=== PATIENT | male | born 1985 | race Caucasian/White ===

== ENCOUNTER 2017-05-25 07:50 | Emergency (ER) | payer BC ==
[~2017-05-25 07:50] MED LIST: CIPR-255 PO; SULF800T23 PO
[2017-05-25 08:01] VITALS: TEMP 36.8; Ht 188 cm
--- NOTE | 2017-05-25 08:41 | DIAGNOSTIC IMAGING REPORT ---
L FOOT MIN 3 VIEWS ROUTINE CLINICAL HISTORY: Pain status post trauma COMPARISON: 02/16/2016 DISCUSSION: There is a subtle fracture of the cuboid. No additional fractures are visualized. IMPRESSION: Cuboid fracture. Electronically signed by: Aj Paz M.D. 05/25/2017 8:40 AM Dictated Date/Time: 05/25/2017 8:38 AM
--- NOTE | 2017-05-25 08:42 | DIAGNOSTIC IMAGING REPORT ---
LEFT ANKLE 3 VIEWS CLINICAL HISTORY: Left ankle injury. FINDINGS: 3 views of the left ankle are obtained. No prior studies are available for comparison at the time of dictation. The skeletal structures are well mineralized. A tiny avulsion fracture is suspected along the inferior aspect of the lateral malleolus. No additional fracture is seen. The ankle mortise is intact. There is a joint effusion. Mild soft tissue swelling is present around the ankle. IMPRESSION: 1. Soft tissue swelling and joint effusion. 2. Suspect a tiny avulsion fracture from the inferior aspect of the lateral malleolus. 3. No additional fracture is seen. Electronically signed by: Rinku Kaba M.D. 05/25/2017 8:41 AM Dictated Date/Time: 05/25/2017 8:39 AM
--- NOTE | 2017-05-25 09:12 | EMERGENCY ROOM VISIT NOTE ---
ED Visit Note First contact with patient: 08:03 CHIEF COMPLAINT: Left foot and ankle injury this morning Patient is an otherwise healthy 31-year-old white male who presents to the emergency department for evaluation of a left foot/ankle injury that he sustained earlier this morning. He was taking his dog out, and was stepping down off of his deck when he slipped and planted awkwardly with the left foot, and heard a crunching sound. He was able to bear weight, but as he continued to his morning he noted progressively worsening pain and swelling in the lateral aspect of his left foot and ankle. He took ibuprofen which has helped and he rates his discomfort a 3/10. He notes swelling of the lateral aspect of his foot. He also notes some slight ankle discomfort. Denies any prior history of injuries to this foot or ankle. Denies any knee pain. REVIEW OF SYSTEMS: Review of systems as per HPI. All other systems reviewed were negative. At least 6 systems reviewed. PMH: Electronic medical records are reviewed and summarized as above/below. See Problem List. SOCIAL HISTORY: Patient lives at home with his significant other. Smoker. He is employed. PHYSICAL EXAM: Vital Signs: Reviewed Nurse's notes. CONSTITUTIONAL: Patient is a pleasant, well-appearing 31-year-old white male who is awake and alert and in no acute distress. MUSCULOSKELETAL: Examination of the left foot and ankle show mild dorsolateral soft tissue swelling of the foot, and slight swelling over the lateral aspect of the ankle. He is tender over the lateral ankle ligaments and over the midfoot region. There is slight ecchymosis noted. He has full range of motion , limited only by discomfort and soft tissue swelling. The foot is neurovascularly intact. Skin is intact. There is no pain over the proximal fibular head. EMERGENCY DEPARTMENT COURSE: Ice pack was applied. X-rays of the left foot and ankle were obtained. He has a tiny avulsion fracture off the distal fibula, but has a relatively nondisplaced cuboid fracture. Patient was placed in a short-leg posterior Ortho-Glass splint and instructed on a nonweight bearing gait using crutches. He is previously established with Dr. Pickard and would like to follow-up with him. He will go directly to their office for further care. Medication reconciliation: I attest that I have personally reviewed the patient' s current medication list. Blood pressure screening : Patient was found to have normal blood pressure on screening and does not require follow-up. Differential diagnoses includes fracture, sprain, contusion, dislocation, and others. L FOOT MIN 3 VIEWS ROUTINE CLINICAL HISTORY: Pain status post trauma COMPARISON: 02/16/2016 DISCUSSION: There is a subtle fracture of the cuboid. No additional fractures are visualized. IMPRESSION: Cuboid fracture. LEFT ANKLE 3 VIEWS CLINICAL HISTORY: Left ankle injury. FINDINGS: 3 views of the left ankle are obtained. No prior studies are available for comparison at the time of dictation. The skeletal structures are well mineralized. A tiny avulsion fracture is suspected along the inferior aspect of the lateral malleolus. No additional fracture is seen. The ankle mortise is intact. There is a joint effusion. Mild soft tissue swelling is present around the ankle. IMPRESSION: 1. Soft tissue swelling and joint effusion. 2. Suspect a tiny avulsion fracture from the inferior aspect of the lateral malleolus. 3. No additional fracture is seen. Problem List Medical Problems: (1) Abscess of left foot Status: Resolved (2) Encounter for wound re-check Status: Resolved (3) Wound infection Status: Resolved Surgical Problems: (1) Hx of tonsillectomy Status: Resolved Current/Historical Medications No Active Prescriptions or Reported Meds Allergies Coded Allergies: Amoxicillin (Unverified Allergy, Intermediate, RASH/HIVES, 05/25/17) Cephalexin (Verified Allergy, Intermediate, THROAT SWELLING, 05/25/17) Codeine (Verified Allergy, Unknown, RASH, 05/25/17) Vital Signs Date Time Temp Pulse Resp B/P (MAP) Pulse Ox O2 Delivery O2 Flow Rate FiO2 05/25/17 09:30 83 16 126/84 98 05/25/17 08:01 36.8 76 20 149/88 98 Room Air Departure Information Impression Primary Impression: Closed left cuboid fracture Additional Impression: Left ankle sprain Prescriptions No Active Prescriptions or Reported Meds Referrals No Doctor, Assigned (PCP) Jose Armando Pickard D.O. Patient Instructions [facility] Additional Instructions Ibuprofen(Motrin, Advil) may be used for fever or pain. Use 600mg every six hours as needed. Take with food. Avoid using more than 2400mg in a 24 hour period. Do not use 2400mg per day for more than three consecutive days without physician direction. Prolonged inappropriate use can lead to stomach upset or ulcers. This medication can be taken if you need to drive, work, or perform activities which may be dangerous when taking narcotic pain medication. (AND/OR) Acetaminophen(Tylenol) may be used for fever or pain. Use 1000mg every six hours as needed. Avoid using more than 3000mg in a 24 hour period. This medication can be taken if you need to drive, work, or perform activities which may be dangerous when taking narcotic pain medication. Ice compresses for 20 minutes at a time four times daily for 2-3 days. Use the crutches as instructed with no weight on the left leg. Rest and elevate your injury. Do not get the splint wet. If your splint feels excessively tight, you have worsening pain, develop numbness or tingling, or your digits appear blue, loosen the amado wrap. Then reapply the amado wrap gently without removing the splint. If your symptoms are not quickly relieved return to the ER for re- evaluation. Continue current medications. Return to the ER immediately for any numbness, tingling, severe pain, extreme swelling in the extremity or as needed. Go directly to [facility] for evaluation. Problem Qualifiers
[2017-05-25 09:30] VITALS: BP 126/84; PULSE 83; O2SAT 98
== END 2017-05-25 09:25 | disposition home or self-care (01) ==
LOC: C.EDB 07:51 → C.EDA 09:25
DX: S92.215A Nondisplaced fracture of cuboid bone of left foot, initial encounter for closed fracture (principal); S93.402A Sprain of unspecified ligament of left ankle, initial encounter; W10.8XXA Fall (on) (from) other stairs and steps, initial encounter; Y92.098 Other place in other non-institutional residence as the place of occurrence of the external cause